=== PATIENT | female | born 1990 | race Caucasian/White ===

== ENCOUNTER 2021-02-28 10:01 | Emergency (ER) | payer MEDICAID, SELFPAY ==
[2021-02-28 10:15] VITALS: BP 141/89; PULSE 85; RESP 18; TEMP 37.4; O2SAT 98; BMI 36.6
--- NOTE | 2021-02-28 10:30 | ED_ITS ---
HPI - Abdominal Pain General: Chief Complaint: Abdominal Pain Stated Complaint: sharp lower abd pains Time Seen by Provider: 02/28/21 10:15 Source: patient Mode of arrival: ambulatory Limitations: no limitations History of Present Illness: HPI narrative: Patient is a 30-year-old female who presents to ED today for evaluation of abdominal pain. Patient tells me around 4 AM she awoke from sleep with periumbilical pain. She states since onset pain has moved down into her right lower abdomen. She has had diarrhea throughout the day. She has had nausea without episodes of emesis. No fevers. Previous abdominal surgeries include a cholecystectomy and a bilateral salpingectomy. No vaginal discharge or vaginal odor. Denies urinary symptoms. MD elicited complaint: abdominal pain Pertinent past history: none Onset (ago): hour(s) Pain Consistency: constant Location: Periumbilical and RLQ Severity: moderate Quality: sharp Migration to: RLQ Exacerbating factors: eating Relieving factors: nothing Associated Symptoms: Reports diarrhea and nausea; Denies chills, dysuria, fever(s), hematochezia, melena and vomiting Related Data: Date of Last Menstrual Period: 02/11/21 Patient : No Review of Systems Const: Denies: fever(s), chills, body aches or fatigue Card: Denies: chest pain Resp: Denies: dyspnea GI: Reports: abdominal pain, nausea and diarrhea; Denies: vomiting, hematochezia or melena : Denies: flank pain, difficulty voiding, dysuria or urinary urgency Musc: Denies: neck pain, back pain, extremity pain or joint pain Skin/Breast: Denies: rash Neuro: Denies: headache(s), numbness in extremities, weakness in extremities, sensory changes or dizziness [facility] Female Reproductive History: Date of last menstrual period: 02/11/21 Physical Exam Const: COMMON NORMALS: no acute distress, patient oriented x3, no limitations and alert GENERAL APPEARANCE: cooperative NUTRITIONAL APPEARANCE: obese ORIENTATION/CONSCIOUSNESS: Yes awake, Yes oriented to person, Yes oriented to place and Yes oriented to time HENMT: COMMON NORMALS: normocephalic and atraumatic HEAD & SCALP: normocephalic and atraumatic Resp: COMMON NORMALS: normal respiratory effort and clear to auscultation bilaterally AUSCULTATION: clear to auscultation bilaterally Cardio: COMMON NORMALS: regular rate and regular rhythm RATE: regular rate RHYTHM: regular rhythm GI: COMMON NORMALS: Normal to inspection, nondistended, normoactive bowel sounds present, Soft to palpation, No hepatosplenomegaly present and no masses INSPECTION: Yes normal to inspection AUSCULTATION: Yes normoactive bowel sounds PALPATION: Yes Soft to palpation, Yes Tenderness to palpation present (GI) (mainly to RLQ), Yes No hepatosplenomegaly present and Yes Other GI palpation findings present (negative heel tap, negative obturator ) : COMMON NORMALS: Yes no CVA tenderness BLADDER/KIDNEY EXAM: Yes no CVA tenderness Back/Pelvis: COMMON NORMALS: no CVA tenderness, thoracic and lumbar spine normal to inspection, no thoracic nor lumbar tenderness and thoraco-lumbar ROM normal Extremity: COMMON NORMALS: normal to inspection Neuro: COMMON NORMALS: patient oriented x3 SENSORIUM/ORIENTATION: Yes alert, Yes oriented to person, Yes oriented to place and Yes oriented to time Skin: COMMON NORMALS: no rashes or lesions noted GENERAL SKIN EXAM: no rashes or lesions noted Course Vital Signs: Vital signs: Vital Signs Temperature 99.3 F 02/28/21 10:15 Pulse Rate 85 02/28/21 10:15 Respiratory Rate 16 02/28/21 11:17 Blood Pressure 129/97 02/28/21 11:17 Pulse Oximetry 96 02/28/21 11:17 MDM - Abdominal Pain MDM Narrative: Medical decision making narrative: Patient is a 30-year-old female here for periumbilical pain migrating to her right lower abdomen. She clinically appears in no acute distress. Her vital signs are normal. Labs are overall unremarkable. CT scan does not show any surgical or emergent pathology. She does have a probable hemorrhagic collapsing corpus luteal cyst. Patient will be given pain/nausea medications and discharged home. Return to ED precautions given. Lab Data: Attestation: I reviewed the patient's lab results. Labs: Lab Results 02/28/21 02/28/21 02/28/21 11:00 11:00 11:00 WBC 12.5 10^3/uL H 10 ^3/uL (4.0-10.0) RBC 5.12 10^6/uL 10^6 /uL (4.1-5.3) Hgb 16.0 g/dL H g/dL (11.5-15.3) Hct 47.3 % H % (37.0-47.0) MCV 92.4 fl fl (81-99) MCH 31.3 pg pg (28.0-34.0) MCHC 33.8 g/dL g/dL (30.0-36.0) RDW 12.4 % % (12.1-15.1) Plt Count 358 10^3/cmm 10^3 /cmm (130-400) MPV 10.2 fL fL (7.4-10.4) Neut % (Auto) 74.3 % % Lymph % (Auto) 17.6 % % [place] % (Auto) 6.7 % % Eos % (Auto) 0.9 % % Baso % (Auto) 0.2 % % Neut # (Auto) 9.24 10^3/uL H 10 ^3/uL (1.8-7.7) Lymph # (Auto) 2.2 10^3/uL 10^3/ uL (0.8-4.8) [place] # (Auto) 0.8 10^3/uL 10^3/ uL (0.2-0.9) Eos # (Auto) 0.1 10^3/uL 10^3/ uL (0.0-0.8) Baso # (Auto) 0.0 10^3/uL 10^3/ uL (0.0-0.1) Nucleated RBC % (a uto) 0 % % Nucleated RBCs # 0.0 /100WBC /100W BC Sodium 135 mmol/L L mmol /L (136-145) Potassium 3.8 mmol/L mmol/L (3.5-5.1) Chloride 105 mmol/L mmol/L (98-107) Carbon Dioxide 19 mmol/L L mmol/ L (22-29) Anion Gap 14.8 (5-19) BUN 10 mg/dL mg/dL (6-20) Creatinine 0.4 mg/dL L mg/dL (0.5-0.9) GFR Calculation 186.2 mL/min H mL /min (90-130) Glucose 87 mg/dL mg/dL (65-115) Calculated Osmolal ity 278 mOsm/kg L mOs m/kg (285-295) Calcium 9.6 mg/dL mg/dL (8.5-10.5) Total Bilirubin 0.6 mg/dL mg/dL (0.15-1.2) AST 10 U/L U/L (0-32) ALT 12 U/L U/L (0-33) Alkaline Phosphata se 65 IU/L IU/L (35-105) Total Protein 7.5 g/dL g/dL (6.6-8.7) Albumin 4.5 g/dL g/dL (3.5-5.2) Globulin 3.0 g/dL g/dL (1.3-4.6) Lipase 20 U/L U/L (13-60) HCG, Qual Negative (Negative) Urine Color Urine Appearance Urine pH Ur Specific Gravit y Urine Protein Urine Glucose (UA) Urine Ketones Urine Blood Urine Nitrate Urine Bilirubin Urine Urobilinogen Ur Leukocyte Diana ase Urine RBC Urine WBC Ur Squamous Epith Cells Amorphous Sediment Urine Bacteria Urine Mucus 02/28/21 11:11 WBC RBC Hgb Hct MCV MCH MCHC RDW Plt Count MPV Neut % (Auto) Lymph % (Auto) [place] % (Auto) Eos % (Auto) Baso % (Auto) Neut # (Auto) Lymph # (Auto) [place] # (Auto) Eos # (Auto) Baso # (Auto) Nucleated RBC % (a uto) Nucleated RBCs # Sodium Potassium Chloride Carbon Dioxide Anion Gap BUN Creatinine GFR Calculation Glucose Calculated Osmolal ity Calcium Total Bilirubin AST ALT Alkaline Phosphata se Total Protein Albumin Globulin Lipase HCG, Qual Urine Color Yellow (Yellow) Urine Appearance Hazy A (CLEAR) Urine pH 5 (5-7) Ur Specific Gravit y 1.020 (1.005-1.030) Urine Protein Neg (Negative) Urine Glucose (UA) Norm (Normal) Urine Ketones Negative (Negative) Urine Blood Neg (Negative) Urine Nitrate Negative (Negative) Urine Bilirubin Neg (Negative) Urine Urobilinogen Norm mg/dL mg/dL (Negative) Ur Leukocyte Diana ase Trace H (Negative) Urine RBC Not Reportable Urine WBC 5-10 /hpf H /hpf (0-5) Ur Squamous Epith Cells 5-10 /hpf H /hpf (0-5) Amorphous Sediment Not Reportable Urine Bacteria 1+ /hpf H /hpf (NONE) Urine Mucus 1+ /hpf /hpf Imaging Data ^: CT Abd/Pel: Radiologist's impression: [facility], [place] [address]MQ Scan ReportSigned Patient: Nickie Cruz AUnit #: [id number]: [id number]#:[id number]/Sex: 30 / FADM Date: 02/28/21Loc: ERRoom/Bed:Attending Dr: Ordering Provider/Ordering MD: Deborah Caraballo Date of Service: 02/28/21 Procedure(s): CT abdomen pelvis w con* [id number] Accession Number(s): [id number] Report Number: [id number] WS: [id number] CT ABDOMEN AND PELVIS WITH CONTRAST HISTORY: R lower abdominal pain TECHNIQUE: Imaging performed of the abdomen and pelvis with IV contrast. Single phase imaging of the abdomen. Coronal and sagittal reformats are submitted. All CT scans at [facility] use at least one of these dose optimization techniques: automated exposure control; mA and/or kV adjustment per patient size (includes targeted exams where dose is matched to clinical indication); or iter ative reconstruction. IV CONTRAST: Omnipaque 300; 95 mL IV. Oral contrast: No DLP: 1728.48 mGy.cm COMPARISON: None available. Lower thorax: Lung bases are clear. Heart is normal size. Small hiatal hernia. 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 No bile duct dilatation or mass. Gallbladder: Status post cholecystectomy. Pancreas: Normal size pancreas and pancreatic duct. No adjacent inflammation. Spleen: Normal size spleen. No mass or infarct. Adrenal glands: Normal. Right kidney: Normal size kidney. There are scattered hypodensities which are probably cysts but too small to characterize. No obstruction. Left kidney: Cortical cyst measuring 1.0 cm in the upper pole. No obstruction. Aorta: Normal. Lymphadenopathy: None. Free fluid: There is a small amount of free fluid in the pelvis. GI tract: No GI tract obstruction. The appendix is well identified and is within the midline of the pelvis. There is still air within the appendix. Abdominal wall: Unremarkable abdominal wall. No hernia. Pelvis: Small amount of free fluid in the pelvis. Crenulated area of enhancement within the RIGHT ovary is probably a hemorrhagic collapsing corpus luteum cyst. There are several smaller follicles within the RIGHT ovary. Small follicle in the LEFT ovary. Uterus is negative. Bones: Unremarkable. CT/CT abdomen pelvis w con* [id number] IMPRESSION: 1. No evidence for appendicitis. The appendix is normal. 2. Small amount of free fluid in the cul-de-sac and a peripherally enhancing collapsing corpus luteum cyst RIGHT ovary. 3. No renal obstruction. 4. Williams's lobe and prior cholecystectomy. 5. Small hiatal hernia. Dictated By:Mai Orr DOSigned By:Mai Orr DOSigned Date/Time:02/28/21 1246DD/ 1240 Discharge Plan Discharge Patient Disposition: Home Clinical Impression: Cyst of right ovary Condition: Stable Prescriptions: New ondansetron HCl [Zofran] 4 mg tablet 4 mg PO Q6H PRN (Reason: nausea and vomiting) Qty: 14 RF: 0 tramadol 50 mg tablet 50 mg PO Q6H PRN (Reason: pain) Qty: 14 RF: 0 Discharge Orders: Discharge ED (Routine); Ordered 02/28/21 Ordered By: Deborah Caraballo Referrals: Roxanna Gale MD [Primary Care Provider] - Patient Instructions: Ovarian Cyst (ED) Activity Restrictions/Additional Instructions: As we discussed you may take pain/nausea medications as needed. You need to return to the emergency department for worsening or severe abdominal pain, repetitive episodes of vomiting or diarrhea, bloody vomit or diarrhea, fevers greater than 100.4, severe vaginal bleeding/discharge, or any other concerns you may have. I hope you begin to feel better soon. Coding Level of Care Code ED Tow Motor Operator for [place] Fwd Exam Comprehensive
--- NOTE | 2021-02-28 10:30 | CT_ITS ---
WS: [id number] CT ABDOMEN AND PELVIS WITH CONTRAST HISTORY: R lower abdominal pain TECHNIQUE: Imaging performed of the abdomen and pelvis with IV contrast. Single phase imaging of the abdomen. Coronal and sagittal reformats are submitted. All CT scans at [facility] use at [address] one of these dose optimization techniques: automated exposure control; mA and/or kV adjustment per patient size (includes targeted exams where dose is matched to clinical indication); or iterative re construction. IV CONTRAST: Omnipaque 300; 95 mL IV. Oral contrast: No DLP: 1728.48 mGy.cm COMPARISON: None available. Lower thorax: Lung bases are clear. Heart is normal size. Small hiatal hernia. 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 No bile duct dilatation or mass. Gallbladder: Status post cholecystectomy. Pancreas: Normal size pancreas and pancreatic duct. No adjacent inflammation. Spleen: Normal size spleen. No mass or infarct. Adrenal glands: Normal. Right kidney: Normal size kidney. There are scattered hypodensities which are probably cysts but too small to characterize. No obstruction. Left kidney: Cortical cyst measuring 1.0 cm in the upper pole. No obstruction. Aorta: Normal. Lymphadenopathy: None. Free fluid: There is a small amount of free fluid in the pelvis. GI tract: No GI tract obstruction. The appendix is well identified and is within the midline of the p mary beth. There is still air within the appendix. Abdominal wall: Unremarkable abdominal wall. No hernia. Pelvis: Small amount of free fluid in the pelvis. Crenulated area of enhancement within the RIGHT ova ry is probably a hemorrhagic collapsing corpus luteum cyst. There are several smaller follicles withi n the RIGHT ovary. Small follicle in the LEFT ovary. Uterus is negative. Bones: Unremarkable. CT/CT abdomen pelvis w con* [id number] IMPRESSION: 1. No evidence for appendicitis. The appendix is normal. 2. Small amount of free fluid in the cul-de-sac and a peripherally enhancing c ollapsing corpus luteum cyst RIGHT ovary. 3. No renal obstruction. 4. Williams's lobe and prior cholecystectomy. 5. Small hiatal hernia.
[2021-02-28] MEDS: ondansetron 2 mg/ML SDV 2 mL 4 MG IVP (11:05)
[2021-02-28 11:08] VITALS: RESP 18; O2SAT 97
[2021-02-28] MEDS: morphine 4 mg/mL SDV 1 mL IVP (11:08)
[2021-02-28 11:17] VITALS: BP 129/97; RESP 16; O2SAT 96
[2021-02-28 11:22] LABS: Charge for UA Resulting for Rev
[2021-02-28 11:25] LABS: Basophils % 0.2 %; Eosinophils # 0.1 10^3/uL (0.0-0.8); Eosinophils % 0.9 %; Hematocrit 47.3 % (37.0-47.0); Lymphocytes # 2.2 10^3/uL (0.8-4.8); Lymphocytes % 17.6 %; Mean Corpuscular HGB Conc 33.8 g/dL (30.0-36.0); Mean Corpuscular Hemoglobin 31.3 pg (28.0-34.0); Mean Corpuscular Volume 92.4 fl (81-99); Mean Platelet Volume 10.2 fL (7.4-10.4); Monocytes # 0.8 10^3/uL (0.2-0.9); Monocytes % 6.7 %; Neutrophils # 9.24 10^3/uL (1.8-7.7); Neutrophils % 74.3 %; Nucleated Red Blood Cells % 0 %; Platelet Count 358 10^3/cmm (130-400); Red Blood Count 5.12 10^6/uL (4.1-5.3); Red Cell Distribution Width 12.4 % (12.1-15.1); White Blood Count 12.5 10^3/uL (4.0-10.0)
[2021-02-28 11:34] LABS: Add Urine Culture? No; Add Urine Microscopic? YES; Bacteria Urine 1+ /hpf; Bilirubin Urine Neg (Negative); Blood Urine Neg (Negative); Glucose Urine UA Norm (Normal); Ketones Urine Negative (Negative); Leukocyte Esterase Urine Trace (Negative); Mucus Urine 1+ /hpf; Nitrate Urine Negative (Negative); Protein Urine Neg (Negative); Urine Appearance Hazy (CLEAR); Urine Color Yellow (Yellow); Urobilinogen Urine Norm (Negative); pH Urine 5 (5-7)
[2021-02-28 11:53] LABS: HCG, Serum Qual Negative (Negative)
[2021-02-28 11:59] LABS: Alanine Aminotransferase 12 U/L (0-33); Albumin Level 4.5 g/dL (3.5-5.2); Alkaline Phosphatase 65 IU/L (35-105); Anion Gap 14.8 (5-19); Aspartate Amino Transferase 10 U/L (0-32); Blood Urea Nitrogen 10 mg/dL (6-20); Calcium 9.6 mg/dL (8.5-10.5); Carbon Dioxide 19 mmol/L (22-29); Chloride 105 mmol/L (98-107); Glomerular Filtration Rate 186.2 mL/min (90-130); Glucose 87 mg/dL (65-115); Lipase 20 U/L (13-60); Osmolality Calculated 278 mOsm/kg (285-295); Potassium 3.8 mmol/L (3.5-5.1); Sodium 135 mmol/L (136-145); Total Bilirubin 0.6 mg/dL (0.15-1.2); Total Protein 7.5 g/dL (6.6-8.7)
[2021-02-28] MEDS: iohexol 300 mg/mL 100 mL Btl IV (12:14)
[2021-02-28 13:16] VITALS: BP 116/77; PULSE 66; RESP 20
== END 2021-02-28 13:19 | disposition home or self-care (01) ==
PROVIDERS: Emergency Provider Physician Assistant; PCP Family Medicine
DX: N83.201 Unspecified ovarian cyst, right side (principal)
CPT/HCPCS: 74177; 80053; 81001; 81003; 83690; 84703; 85025; 96374; 96375; 99283; J2270; J2405; Q9967

== ENCOUNTER → 2023-11-04 08:35 | Outpatient (BNVA) | payer MEDICAID, SELFPAY | PROVIDERS: PCP Family Medicine; Visit Provider Family Medicine | DX: I10 Essential (primary) hypertension (principal); F41.9 Anxiety disorder, unspecified; E66.9 Obesity, unspecified; F32.1 Major depressive disorder, single episode, moderate; F17.200 Nicotine dependence, unspecified, uncomplicated; Z71.6 Tobacco abuse counseling; D18.01 Hemangioma of skin and subcutaneous tissue | CPT/HCPCS: 80053; 80061; 84439; 84443; 85025 ==

== ENCOUNTER → 2023-11-10 11:42 | Outpatient (BNVA) | payer MEDICAID, SELFPAY | PROVIDERS: PCP Family Medicine; Visit Provider Family Medicine | DX: I10 Essential (primary) hypertension (principal) | CPT/HCPCS: 80053; 80061; 84439; 84443 ==

== ENCOUNTER → 2024-01-13 11:38 | Outpatient (BNVA) | payer MEDICAID, SELFPAY | PROVIDERS: PCP Family Medicine; Visit Provider Family Medicine | DX: Z01.419 Encounter for gynecological examination (general) (routine) without abnormal findings (principal) | CPT/HCPCS: 87624 ==

== ENCOUNTER → 2024-03-16 09:57 | Outpatient (BNVA) | payer MEDICAID, SELFPAY | PROVIDERS: PCP Family Medicine; Visit Provider Family Medicine | DX: J02.9 Acute pharyngitis, unspecified (principal) | CPT/HCPCS: 87071; 87880 ==